=== PATIENT | male | born 1970 | race Two or more races ===

== ENCOUNTER 2017-06-19 09:12 | Emergency (ER) | payer BC ==
[~2017-06-19] VITALS: Ht 188 cm; Wt 111.0 kg
[2017-06-19] MEDS: KETOROLAC 30MG/ML VIAL IM ONE ×2 (11:12→11:58)
[2017-06-19 13:34] VITALS: BP 124/87
== END 2017-06-19 13:43 | disposition home or self-care (01) ==
LOC: ER 12:15
DX: S10.93XA Contusion of unspecified part of neck, initial encounter (principal); S40.012A Contusion of left shoulder, initial encounter; Z87.891 Personal history of nicotine dependence; V89.2XXA Person injured in unspecified motor-vehicle accident, traffic, initial encounter; Y93.89 Activity, other specified; Y92.89 Other specified places as the place of occurrence of the external cause; Y99.8 Other external cause status
CPT/HCPCS: 72040; 73030; 96372; 99284; J1885; Z7610